=== PATIENT | male | born 1960 | race Caucasian/White ===

== ENCOUNTER 2019-09-23 19:28 | Emergency (ER) | payer MEDICARE ==
[~2019-09-23] VITALS: Ht 175.3 cm; Wt 77.3 kg
[2019-09-23 19:45] VITALS: BP 118/77; PULSE 61; TEMP 98
== END 2019-09-23 22:04 | disposition left against medical advice (07) ==
LOC: COL.ER 19:28
DX: G89.29 Other chronic pain (principal); M54.9 Dorsalgia, unspecified

== ENCOUNTER → 2019-10-09 | Outpatient (CLI) | payer MEDICARE, MEDICAID | LOC: COL.RAD 10:40 | DX: M47.812 Spondylosis without myelopathy or radiculopathy, cervical region (principal); M99.11 Subluxation complex (vertebral) of cervical region; M50.220 Other cervical disc displacement, mid-cervical region, unspecified level; M48.02 Spinal stenosis, cervical region ==

== ENCOUNTER 2019-10-30 09:17 | Emergency (ER) | payer MEDICARE, MEDICAID ==
[~2019-10-30] VITALS: Ht 175.3 cm; Wt 75.0 kg
[2019-10-30 09:43] VITALS: TEMP 98.1
[2019-10-30] MEDS ORDERED: NORCO 325 MG-101 TAB PO (09:55)
[2019-10-30] MEDS ORDERED: SOMA 350MG350 MG/TAB PO (09:55)
[2019-10-30] MEDS ORDERED: PROAIR HFA0.09 MG/AC IH (09:56)
[2019-10-30] MEDS ORDERED: VIVLODEX10 MG PO (09:56)
[2019-10-30 10:42] VITALS: BP 136/82; PULSE 56
== END 2019-10-30 10:42 | disposition home or self-care (01) ==
LOC: COL.ER 09:17
DX: R51 Headache (principal); M54.9 Dorsalgia, unspecified; M54.2 Cervicalgia; G89.29 Other chronic pain; Z88.2 Allergy status to sulfonamides
CPT/HCPCS: J1885